=== PATIENT | male | born 1955 | race Caucasian/White ===

== ENCOUNTER 2016-07-19 15:48 | Emergency (ER) | payer OTHER ==
[~2016-07-19] VITALS: Ht 175.2 cm; Wt 106.6 kg
[~2016-07-19 15:48] MED LIST: COLCHICINE0.6 MG PO; COREG3.125 MG PO; GEMCOR600 MG PO; LISINOPRIL10 MG PO; METFORMIN500 MG PO; SIMVASTATIN20 MG PO; VICODIN 500 MG-1 TAB PO
[2016-07-19] MEDS ORDERED: METFORMIN HCL1000 MG PO (15:58)
[2016-07-19] MEDS ORDERED: GLIMEPIRIDE4 M1 PO (15:58)
[2016-07-19] MEDS ORDERED: LISINOPRIL AND1 TA2 PO (15:58)
[2016-07-19] MEDS ORDERED: ROSUVASTATIN CA40 MG PO (15:58)
[2016-07-19] MEDS ORDERED: ASPIRIN81 MG PO (15:59)
[2016-07-19 16:24] LABS: BASO % 0.3 % (0.0-1.0); EOS % 0.4 % (1.0-4.0); HEMATOCRIT 45.5 % (42.0-52.0); IG # 0.1 10*3/uL (0.0-0.1); LYMPH # 3.2 10*3/uL (1.3-4.4); MEAN CELL VOLUME 88.2 fl (80.0-94.0); MEAN CORPUSCULAR HGB 29.1 pg (27.0-31.0); MEAN PLATELET VOLUME 11.4 fl (9.6-12.3); MONO # 0.9 10*3/uL (0.1-1.0); MONO % 8.6 % (3.0-9.0); NEUT # 6.2 10*3/uL (2.3-7.9); PLATELET COUNT AUTOMATED 172 10*3/uL (130-400); RED BLOOD COUNT 5.16 10*6/uL (4.50-5.90); RED CELL DISTRI WIDTH 12.3 % (0-14.5); WHITE BLOOD COUNT 10.4 10*3/uL (4.8-10.8)
[2016-07-19 16:40] LABS: ALKALINE PHOSPHATASE 96 U/L (45-117); BILIRUBIN, TOTAL 0.4 mg/dl (0.2-1.0); BUN 23 mg/dl (7-24); CARBON DIOXIDE 26 mmol/L (21-32); CHLORIDE 102 mmol/L (98-107); EST GLOM FILT AFRICAN AMERICAN > 60 ml/min; GLUCOSE 199 mg/dL (65-99); POTASSIUM 4.2 mmol/L (3.5-5.1); SGOT/AST 41 IU/L (3-35); SGPT/ALT 39 U/L (12-78); SODIUM 138 mmol/L (136-145); TOTAL PROTEIN 7.8 gm/dL (6.4-8.2)
== END 2016-07-19 21:23 | disposition home or self-care (01) ==
LOC: ED 15:48
PROVIDERS: Registered Nurse
DX: S32.491A Other specified fracture of right acetabulum, initial encounter for closed fracture (principal); Z79.899 Other long term (current) drug therapy; Z79.82 Long term (current) use of aspirin; W17.89XA Other fall from one level to another, initial encounter; Y93.89 Activity, other specified; Y92.89 Other specified places as the place of occurrence of the external cause; Y99.9 Unspecified external cause status

== ENCOUNTER → 2018-03-19 | Outpatient (CLI) | payer OTHER ==
[~2018-03-19] MED LIST changes: +ASPIRIN81 MG PO; +GLIMEPIRIDE4 M1 PO; +LISINOPRIL AND1 TA2 PO; +METFORMIN HCL1000 MG PO; +ROSUVASTATIN CA40 MG PO
[2018-03-19 10:56] LABS: ALBUMIN 3.7 gm/dl (3.1-4.5); BUN 19 mg/dl (7-24); CHLORIDE 99 mmol/L (98-107); CHOLESTEROL 159 mg/dL (<200); SGOT/AST 11 IU/L (3-35); SGPT/ALT 26 U/L (12-78); SODIUM 134 mmol/L (136-145); TRIGLYCERIDES 249 mg/dl (<150); VLDL CHOLESTEROL 50 mg/dL (6-40)
[2018-03-19 10:58] LABS: ALKALINE PHOSPHATASE 106 U/L (45-117); HDL CHOLESTEROL 34 mg/dl (40-60); LDL CHOLESTEROL 75 mg/dL (9-159); TOTAL PROTEIN 7.7 gm/dL (6.4-8.2)
[2018-03-19 11:26] LABS: VITAMIN D, 25-HYDROXY 21.8 ng/mL (30-100)
== END | disposition home or self-care (01) ==
LOC: RESCLI 09:01
PROVIDERS: Internal Medicine
DX: I10 Essential (primary) hypertension (principal); E11.9 Type 2 diabetes mellitus without complications; E78.5 Hyperlipidemia, unspecified; E78.00 Pure hypercholesterolemia, unspecified; E66.09 Other obesity due to excess calories; Z76.89 Persons encountering health services in other specified circumstances; Z79.899 Other long term (current) drug therapy; Z79.82 Long term (current) use of aspirin

== ENCOUNTER → 2018-07-09 | Outpatient (CLI) | payer OTHER | END | disposition home or self-care (01) | LOC: RESCLI 01:12 | DX: E11.9 Type 2 diabetes mellitus without complications (principal); I10 Essential (primary) hypertension; E78.5 Hyperlipidemia, unspecified; E78.00 Pure hypercholesterolemia, unspecified; Z88.8 Allergy status to other drugs, medicaments and biological substances ==